=== PATIENT | male | born 1980 | race Asian ===

== ENCOUNTER 2020-03-05 03:02 | Emergency (ER) | payer SELFPAY ==
[~2020-03-05] VITALS: Ht 175.3 cm; Wt 72.6 kg
--- NOTE | 2020-03-05 03:02 | NUR ---
Patient triaged and placed in TENT OUTSIDE. VSS and patient appears in no acute distress at this time. Accompanied by READING DEPUTIES, awaiting available bed, and MD notified of need for MSE.
[2020-03-05 03:14] VITALS: BP_SYST 158
--- NOTE | 2020-03-05 03:20 | NUR ---
PT BIB [facility] FOR A MEDICAL CLEARANCE PRIOR TO BOOKING. PT STATES HE HAD POSSIBLE EXPOSURE TO COVID 19. PT DENIES COUGH, FEVER, CHILLS, NAUSEA, VOMITING, DIARRHEA, CONSTIPATION, SHORTNESS OF BREATH, CHEST PAIN, LOSS OF APPETITE, CHANGE IN TASTE/SMELL. [place] DEPUTIES WITH PATIENT.
--- NOTE | 2020-03-05 03:40 | NUR ---
ER Dr. Lombardo at bedside examining patient.
--- NOTE | 2020-03-05 03:52 | NUR ---
Patient given written and verbal discharge instructions and verbalizes understanding. ER MD discussed with patient the results and treatment provided. Patient in stable condition. PATIENT RELEASED IN [facility]USTODY OF [facility]PART[facility].
[2020-03-05 03:53] VITALS: BP_SYST 133
== END 2020-03-05 03:52 ==
LOC: SED 03:02
DX: Z02.89 Encounter for other administrative examinations (principal); Z20.828 Contact with and (suspected) exposure to other viral communicable diseases
CPT/HCPCS: 36415; 99283